=== PATIENT | male | born 1970 | race Caucasian/White ===

== ENCOUNTER 2023-10-18 11:42 | Inpatient (IN) ==
--- NOTE | 2023-10-18 12:32 | Emergency Department Note ---
Impression & Plan Depression, Parkinson's disease ED Provider Note NAME: VICKIE HICKS III AGE: 53 SEX: M : 1970 ARRIVES VIA: Walk-In INFORMANT: Patient, ED PROVIDER(S): Jalil Landa DO CHIEF COMPLAINT: Mental health evaluation HPI: The patient is a 53-year-old male who has a history of early onset Parkinson's who presented to the emergency department for mental health evaluation. The patient presented with his oldest daughter who does give part of the history and also voiced some concerns about the patient's mental health issues. The patient has had some problems with his medications recently. Specifically he had a decrease in his Sinemet dose. He was compliant with that medication change. He was started on 2 new medications this week but has not picked them up. The patient denies having any medical issues at this time. He has had intermittent episodes of headache. He did have a CT when he was here last time. He denies having any suicidal homicidal ideation but does voice some issues with kolby as well as insomnia. ROS: See above HPI for pertinent positives & negatives. A total of 10 systems reviewed and were otherwise negative. PAST MEDICAL HISTORY: See Below PAST SURGICAL HISTORY: See Below FAMILY HISTORY: See Below SOCIAL HISTORY: See Below HOME MEDICATIONS: See Below ALLERGIES: See Below VITALS: See Below PHYSICAL EXAMINATION: GENERAL: Patient is awake alert in no acute distress patient is resting comfortably and showing no signs of anxiety EYES: The conjunctivae are clear. The pupils are round and reactive. EARS, NOSE, MOUTH AND THROAT: The nose is without any evidence of any deformity. NECK: The neck is nontender and supple. RESPIRATORY: Normal respiratory effort is noted there is no evidence of wheezing rhonchi or rales CARDIOVASCULAR: Regular rate and rhythm noted there no murmurs rubs or gallops normal S1 normal S2. GASTROINTESTINAL: The abdomen is soft. Abdomen is nontender. MUSCULOSKELETAL/EXTREMITIES: There is no evidence of gross deformity full range of motion is noted in the hips and shoulders. SKIN: There is no obvious evidence of any rash. There are no petechiae, pallor or cyanosis noted. NEUROLOGIC: Patient is awake alert and oriented x3 strength is symmetric patellar reflexes are 2+ bilaterally PSYCH: The patient makes good eye contact mostly evaluation. Currently the patient is denying any suicidal homicidal ideation. MEDICAL DECISION MAKING: The patient is a 53-year-old male who presented to the emergency department for mental health evaluation. The patient was seen our facility recently for similar complaints. At that time he was medically cleared but he was able to go home. He did have follow-up with his outpatient providers. He did have some medication changes specifically regarding his diagnosis of Parkinson's. He has been compliant with his outpatient medications but he does have 2 medication he was recently started on that he did not have a chance to burr picker yet. He presented back to the emergency department today for mental health evaluation. The patient was medically cleared in the emergency department. The patient was reevaluated multiple times. On subsequent reevaluation he was felt to be a good candidate for possible inpatient management. He was evaluated by the mental health caseworker and referred to 3 [facility]. He was evaluated by [facility]. and was felt to be a good candidate for inpatient management. The 201 was signed by myself. Triage Nursing notes reviewed. Prior medical records reviewed Vital Signs: reviewed and remarkable for no significant abnormalities Differential diagnosis: Mood disorder, infection, hypoglycemia, electrolyte abnormalities, cardiac sources, intracerebral event, toxicologic, trauma, neurologic, as well as other pathologies. ER treatment provided: See below Diagnostics interpreted by me: ECG: none Laboratory studies: As stated above and show below. Imaging studies: See below. Consultation(s): I discussed this case with the emergency department mental health caseworker. Past Med/Surg History Medical History Parkinson disease Hypokalemia Anxiety Chest pain Medication adverse effect Social History Smoking Status: Never smoker Hx Alcohol Use: No Hx Substance Use: No Preferred Language: Paraguayan Feels Safe at Home: Yes Gender Identity: Male Allergies Allergies Allergy/AdvReac Type Severity Reaction Status Date / Time No Known Allergies Allergy Unverified 10/18/23 14:27 Home Meds Home Medications Medication Instructions Recorded Confirmed carbidopa 25 mg-levodopa 100 mg See Rx Instructions .Route .COMPLEX 10/18/23 10/18/23 tablet lisinopril 20 mg tablet 20 mg PO QAM 10/18/23 10/18/23 sildenafil 100 mg tablet 100 mg PO DAILY PRN intercourse 10/18/23 10/18/23 Results & Data (ED) Vital Signs Vital Signs - 24 hr 10/18/23 11:45 10/18/23 12:09 10/18/23 14:00 Temperature 36.5 C Temperature Source Temporal Artery Scan Pulse Rate 106 H Pulse Rate [Right Finger] 96 H Pulse Rhythm [Right Finger] Regular Pulse Strength [Right Finger] Normal Respiratory Rate 20 20 Respiratory Effort / Characteristics Non-Labored Spontaneous Respiratory Depth Normal Respiratory Pattern Regular Blood Pressure 140/94 Blood Pressure [Right Arm] 138/88 Blood Pressure Mean 109 Blood Pressure Mean [Right Arm] 104 Blood Pressure Position [Right Arm] Sitting Pulse Oximetry 97 96 Oxygen Delivery Method Room Air Room Air Sepsis Recent Fever Within 48 Hours No No Sepsis New/Unexplained Change in Mental Status No No Sepsis Action Taken by Nursing No Action Required No Action Required Home Medications Current Medication List: was personally reviewed by me Laboratory Data Attestation: I reviewed the patient's lab results. 10/18/23 12:56 10/18/23 12:56 Lab Results 10/18/23 Range/Units 12:56 WBC 6.34 (4.8-10.8) K/ul RBC 4.91 (4.70-6.10) M/uL Hgb 14.4 (14.0-18.0) g/dl Hct 43.2 (42.0-52.0) % MCV 88.0 (80.0-100.0) fL MCH 29.3 (25.0-34.0) pg MCHC 33.3 (32.0-36.0) g/dL RDW Std Deviation 39.7 (36.4-46.3) fL RDW Coeff of Rickey 12.2 (11.5-14.5) % Plt Count 277 (130-400) K/uL MPV 9.5 (9.4-12.4) fL Immature Gran % (Auto) 0.2 % Neut % (Auto) 68.6 % Lymph % (Auto) 22.2 % [place] % (Auto) 7.9 % Eos % (Auto) 0.8 % Baso % (Auto) 0.3 % Neut # (Auto) 4.35 (1.40-6.50) K/uL Lymph # (Auto) 1.41 (1.20-3.40) K/uL [place] # (Auto) 0.50 (0.11-0.59) K/uL Eos # (Auto) 0.05 (0.00-0.50) K/uL Baso # (Auto) 0.02 (0.00-0.20) K/uL Immature Gran # (Auto) 0.01 (0.01-0.20) K/uL Sodium 139 (136-145) mmol/L Potassium 4.2 D (3.5-5.1) mmol/L Chloride 104 (98-107) mmol/L Carbon Dioxide 29 (21-32) mmol/L Anion Gap 6 (3-11) BUN 11 (6-23) mg/dl Creatinine 0.70 (0.6-1.4) mg/dl Est Cr Clr Drug Dosing 174.4 ml/min Est GFR ( Amer) 126.6 ml/min Est GFR (Non-Af Amer) 109.3 ml/min BUN/Creatinine Ratio 15.7 (10-20) Glucose 103 H (70-99(Fasting)) mg/dl Calcium 9.1 (8.6-10.3) mg/dl Total Bilirubin 0.8 (0.2-1.0) mg/dl AST 15 (13-39) U/L ALT 3 L (7-52) U/L Alkaline Phosphatase 77 (34-104) U/L Total Protein 6.2 (6.0-8.3) gm/dl Albumin 4.0 (3.4-5.0) gm/dl Globulin 2.2 L (2.5-4.0) gm/dl Albumin/Globulin Ratio 1.8 (0.9-2) TSH 0.277 L (0.300-4.500) uIu/ml Free T4 0.99 (0.61-1.60) ng/dl Urine Color Yellow Urine Appearance Clear (Clear) Urine pH 6.5 (4.5-7.5) Ur Specific [place] 1.018 (1.000-1.030) Urine Protein Negative (Negative) Urine Glucose (UA) Negative (Negative) Urine Ketones Trace H (Negative) Urine Blood Negative (Negative) Urine Nitrite Negative (Negative) Urine Bilirubin Negative (Negative) Urine Urobilinogen Negative (Negative) Ur Leukocyte Esterase Negative (Negative) Salicylates < 3.0 L (3.0-30) mg/dl Urine Opiates Screen Neg (Neg) Ur Methadone, Qual Neg (Neg) Acetaminophen < 3 L (10-30) ug/ml Urine Barbiturates Neg (Neg) Ur Phencyclidine (PCP) Neg (Neg) U Amphetamin/Meth Scrn Neg (Neg) MDMA (Ecstasy) Screen Neg (Neg) U Benzodiazepines Scrn Neg (Neg) Ur Cocaine Metabolite Neg (Neg) U Marijuana (THC) Screen Neg (Neg) Ethyl Alcohol mg/dL < 10.0 (<10.0) mg/dl SARS-CoV-2, RNA, NAAT NEGATIVE (NEGATIVE) Discharge Plan Visit Data Chief Complaint: Mental Health Evaluation Stated Complaint: MHE ED Provider: Jalil Landa Discharge Problem: Depression, Parkinson's disease Patient Disposition: Transfer Behavioral Health Fac Forms Stand Alone Forms: [facility], Suicide Prevention Resources Prescriptions Prescriptions: No Action lisinopril 20 mg tablet 20 mg PO QAM sildenafil 100 mg tablet 100 mg PO DAILY PRN (Reason: intercourse) carbidopa-levodopa 25-100 mg tablet See Rx Instructions .ROUTE .COMPLEX Rx Instructions: Take 3 tablets by mouth every 3 hours and at noon time it changes to 2 tablets by mouth every 3 hours. (during waking hours) Referrals Referrals: Ketan Bray MD [Primary Care Provider] - Discharge Problem: Depression Qualifiers: Depression Type: unspecified Qualified Code(s): F32.A - Depression, unspecified Parkinson's disease Qualifiers: Dyskinesia presence: unspecified whether dyskinesia Fluctuating manifestations: unspecified whether manifestations fluctuate Qualified Code(s): G20.A1 - Parkinson's disease without dyskinesia, without mention of fluctuations
[2023-10-18 13:20] LABS: Basophils # (auto) 0.02 K/uL (0.00-0.20); Basophils % (auto) 0.3 %; Eosinophils # (auto) 0.05 K/uL (0.00-0.50); Eosinophils % (auto) 0.8 %; Hematocrit (blood only) 43.2 % (42.0-52.0); Hemoglobin 14.4 g/dl (14.0-18.0); Immature Granulocytes # (auto) 0.01 K/uL (0.01-0.20); Immature Granulocytes % (auto) 0.2 %; Lymphocytes # (auto) 1.41 K/uL (1.20-3.40); Lymphocytes % (auto) 22.2 %; Mean Corpuscular Hemoglobin 29.3 pg (25.0-34.0); Mean Corpuscular Hgb Conc 33.3 g/dL (32.0-36.0); Mean Platelet Volume 9.5 fL (9.4-12.4); Monocytes % (auto) 7.9 %; Neutrophils # (auto) 4.35 K/uL (1.40-6.50); Neutrophils % (auto) 68.6 %; Platelet Count 277 K/uL (130-400); RDW Coefficient of Variation 12.2 % (11.5-14.5); RDW Standard Deviation 39.7 fL (36.4-46.3); Red Blood Count 4.91 M/uL (4.70-6.10); White Blood Count 6.34 K/ul (4.8-10.8)
[2023-10-18 13:42] LABS: Appearance Urine Clear (Clear); Bilirubin Urine Negative (Negative); Blood Urine Negative (Negative); Color Urine Yellow; Glucose Urine UA Negative (Negative); Ketones Urine Trace (Negative); Leukocyte Esterase Urine Negative (Negative); Nitrite Urine Negative (Negative); Protein Urine Negative (Negative); Specific Gravity Urine 1.018 (1.000-1.030); Urobilinogen Urine Negative (Negative); pH Urine 6.5 (4.5-7.5)
[2023-10-18 13:51] LABS: Acetaminophen < 3 ug/ml (10-30); Albumin Globulin Ratio 1.8 (0.9-2); BUN Creatinine Ratio 15.7 (10-20); Bilirubin,Total 0.8 mg/dl (0.2-1.0); Calcium 9.1 mg/dl (8.6-10.3); Creatinine Clr Calc Pharmacy 174.4 ml/min; Est GFR (African American) 126.6 ml/min; Est GFR (Non-African American) 109.3 ml/min; Globulin 2.2 gm/dl (2.5-4.0); Potassium 4.2 mmol/L (3.5-5.1); Salicylate < 3.0 mg/dl (3.0-30); Thyroid Stimulating Hormone 0.277 uIu/ml (0.300-4.500); Total Protein 6.2 gm/dl (6.0-8.3)
[2023-10-18 14:01] LABS: Amphetamines+Metham, Urine Neg (Neg); Barbiturates, Urine Neg (Neg); Benzodiazepine, Urine Neg (Neg); Cocaine, Urine Neg (Neg); MDMA (Ecstacy), Urine Neg (Neg); Marijuana, Urine Neg (Neg); Methadone, Urine Neg (Neg); Opiate, Urine Neg (Neg); Phencyclidine, Urine Neg (Neg)
[2023-10-18 14:28] LABS: T4 Free Thyroxine 0.99 ng/dl (0.61-1.60)
[2023-10-18] MEDS ORDERED: BISMUTH SUBSALICYLATE LIQD 236 ML PO PRN (16:36)
[2023-10-18] MEDS ORDERED: MAGNESIUM HYDROXIDE SUSP 30 ML UDC PO PRN (16:36)
[2023-10-18] MEDS ORDERED: SODIUM CHLORIDE 0.65% NA SOLN 45 ML (OCEAN) PRN (16:36)
[2023-10-18] MEDS ORDERED: ACETAMINOPHEN 325 MG TAB PO PRN (16:36)
[2023-10-18] MEDS ORDERED: ALUMINUM/MAGNESIUM SUSP 30 ML UDC PO PRN (16:36)
[2023-10-18] MEDS ORDERED: hydrOXYzine HCl 25 MG TAB PO PRN ×2 (16:36)
[2023-10-18] MEDS ORDERED: QUEtiapine FUMARATE 25 MG TABLET PO PRN (16:39)
[2023-10-18] MEDS ORDERED: BENZTROPINE MESYLATE 1 MG TAB PO PRN (16:40)
[2023-10-18] MEDS: CARBIDOPA/LEVODOPA 25/100MG TAB PO SCH ×2 (18:03→21:01)
[2023-10-18] MEDS ORDERED: INFLUENZA VIRUS QUADRIVALENT VACCINE (IIV4) 0.5 ML SYR IM ONE (21:00)
[2023-10-19] MEDS: CARBIDOPA/LEVODOPA 25/100MG TAB PO SCH ×6 (06:23→21:02)
[2023-10-19] MEDS: lisinopril 20 MG TAB PO SCH (10:04)
--- NOTE | 2023-10-19 15:23 | Electrocardiogram Report ---
Test Reason : Blood Pressure : / mmHG Vent. Rate : 090 BPM Atrial Rate : 090 BPM P-R Int : 206 ms QRS Dur : 092 ms QT Int : 346 ms P-R-T Axes : 008 -17 014 degrees QTc Int : 423 ms Normal sinus rhythm Normal ECG When compared with ECG of 17-OCT-2023 01:02, No significant change was found Confirmed by Jalil Fabian ([id number]) on 10/19/2023 3:23:05 PM Referred By: REFERRED SELF Confirmed By:Jalil Fabian
--- NOTE | 2023-10-19 16:06 | History & Physical ---
Date of Service October 19, 2023 Impression / Recommendations Impression 53 yo male with a hx of early onset Parkinson's disease who seemingly developed some psychotic symptoms on high dose Sinemet. Dopamine dysregulation syndrome may be driving some of his hyperfocus on meds and overmedication. His concerns about his partner cheating may be a common delusion seen in Parkinson's. (1) Parkinson's disease: Dyskinesia presence: unspecified whether dyskinesia Fluctuating manifestations: unspecified whether manifestations fluctuate Qualified Code(s): G20.A1 - Parkinson's disease without dyskinesia, without mention of fluctuations (2) Unspecified mood [affective] disorder: (3) Medication adverse effect: Encounter type: initial encounter Qualified Code(s): T50.905A - Adverse effect of unspecified drugs, medicaments and biological substances, initial encounter Plan The patient was [facility] to the [facility]) on q15 min checks (behavioral with suicide precautions) for safety. The patient will participate in group, recreational, and milieu therapies and will be offered additional individual and family sessions as clinically appropriate. Continue Sinemet as discussed with neurology with plan to decrease some tabs to 2.5 mg tomorrow. Patient has Seroquel prn and will discuss as standing medication based on emerging symptoms on unit. No evidence of sundowning so far. Suspect patient is minimizing his psychotic symptoms prior to admission but certainly may have resolved quickly with appropriate supervision of Sinemet. Inventory Assets Strengths: voluntary patient, utilziing supports Needs: improve coping skills, secure plan for medications. Suicide Risk Level Suicide Risk Level: Low (q15 min observation checks) Risk Factors Assessment Male: Yes : Yes Do You Have Access To A Gun?: No Health Problems: Yes Mental Health Diagnoses: Yes Substance Use Disorders: No Previous Attempt: No Family History of Suicide: No Previous Psychiatric Hospitalization: No Protective Factors Assessment : No Employed: Yes ([employer]; [employer] Supportive Family: Yes Good Rapport with Provider: Yes (neurology) Psychiatric History Identifying Data VICKIE HICKS is a 53-year-old M who currently lives in [place], has a history of early onset Parkinson's, and was admitted on 10/18/23 16:36 on a 201 voluntary commitment for paranoia and personality changes. Chief Complaint "yeah if I felt tight I would take an extra half or full tab of Sinemet. They told me to cut back but I hadn't started yet." History of Present Illness Patient was seen in ED on 10/09, 10/16, 10/17 and 10/18 for concerns about anxiety and poor sleep. Family expressed concerns that he was also hallucinating (visual if not including auditory erickson) of a man in the yard with a gun or someone shining light or laser pointers into home. He became more confrontational with his detention girlfriend, accusing her of having an affair. The patient tends to minimize these concerns stating, "I covered the window in the door with blanket and they stopped" or referring to issues with girlfriend as "relationship problems" rather than seeing as a possible delusion. He denies manic symptoms or obsessive behaviors such as gambling, overspending. 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 He has been quite focussed on his dosing of Sinemet here, did not decrease pm doses to 2 tabs as directed by psychiatrist. Maintains he cannot function on lower dose as gets "spasms and locked up." His outpatient neurologist Dr. Adriana Guevara from [facility] [phone] was contacted re: his current dosing, concerns about overuse of Sinemet and higher end dosing resulting in dopamine dysregulation syndrome. Patient has not appeared manic or psychotic so far on unit but is taking medications as prescribed. Past Psychiatric History Previous Psych History: therapy with [facility] Current Psychiatric Diagnosis: unspecified psychosis Outpatient Services: none currently Previous Psych Admissions: none Do You Have Access To A Gun?: No History of Previous Suicide Attempt: No Past Medication Trials: is listed to start Seroquel per neurology. Allergies Allergy/AdvReac Type Severity Reaction Status Date / Time No Known Allergies Allergy Unverified 10/18/23 14:27 Home Medications Medication Instructions Recorded Confirmed Type carbidopa 25 mg-levodopa 100 mg See Rx Instructions .Route .COMPLEX 10/18/23 10/18/23 History tablet lisinopril 20 mg tablet 20 mg PO QAM 10/18/23 10/18/23 History sildenafil 100 mg tablet 100 mg PO DAILY PRN intercourse 10/18/23 10/18/23 History Family History Family History of: Depression, Anxiety and Psychosis/ThoughtDisorder Family Mental Health History Comment: anxiety/depression, not sure to extent of anything else Alcohol History Hx of Alcohol Use Over the Past 12 Months: No AUDIT Total Score: 1 Smoking Use Have You Smoked or Used Tobacco Products in the Last 30 Days: No Smoking Status: Never smoker Substance History Hx of Prescription Med Misuse Over the Past 12 Months: No Hx of Over the Counter Med Misuse Over the Past 12 Months: No Hx of Inhalent Misuse Over the Past 12 Months: No Hx of Organic Substance Use Over the Past 12 Months: No Hx of Illegal Substances/Street Drug Use Over Past 12 Months: No Problems as a Result of Past Substance Use: None Identified Personal History Living Arrangements: Apartment Highest Grade Completed: Some College Marital Status: Number Of Children: 3 Beliefs That Will Affect Care: None Hx Legal Problems: No Hx Traumatic Life Events: No Patient History Medical History Parkinson disease Hypokalemia Anxiety Chest pain Medication adverse effect Social History Smoking Status: Never smoker Hx Alcohol Use: No Hx Substance Use: No Preferred Language: Maori Communication Ability: Effective Derrick Worker Required: No Beliefs That Will Affect Care: None Feels Safe at Home: Yes Gender Identity: Male Assistive Devices: None Review of Systems Review of Systems: All systems reviewed & are unremarkable except as noted in HPI & below Physical Exam Psychiatric: Orientation: alert and oriented x 3 Apperance: appropriately dressed and appropriately groomed Eye Contact: good eye contact Motor Behavior: no abnormal motor movements Speech: normal rate/rhythm/volume of speech Affect: + constricted affect Mood: + anxious mood Thought Process: + perseveration Thought Content: reality based without delusions Suicidal Thoughts: denies suicidal thoughts Homicidal Thoughts: denies homicidal thoughts Hallucinations: no auditory hallucinations and no visual hallucinations Cognition: attention grossly intact and language grossly intact Estimated Intelligence: consistent with education level Insight: + limited insight Judgment: + limited judgement Vital Signs (Past 24 Hours): Last Vital Signs Temp 36.6 C 10/19/23 06:54 Pulse 94 H 10/19/23 06:55 Resp 16 10/19/23 06:54 BP 149/97 H 10/19/23 06:55 Pulse Ox 99 10/18/23 18:31 O2 Del Method Room Air 10/18/23 18:31 Exam Statement: A physical exam was performed in the ED by Dr. Landa for the purposes of medical clearance. I accept that physical as correct and adequate for the purposes of the inpatient physical exam. Results & Data ([facility]) Laboratory Results Labs 10/18/23 12:56 WBC 6.34 RBC 4.91 Hgb 14.4 Hct 43.2 MCV 88.0 MCH 29.3 MCHC 33.3 RDW Std Deviation 39.7 RDW Coeff of Rickey 12.2 Plt Count 277 MPV 9.5 Immature Gran % (Auto) 0.2 Neut % (Auto) 68.6 Lymph % (Auto) 22.2 [place] % (Auto) 7.9 Eos % (Auto) 0.8 Baso % (Auto) 0.3 Neut # (Auto) 4.35 Lymph # (Auto) 1.41 [place] # (Auto) 0.50 Eos # (Auto) 0.05 Baso # (Auto) 0.02 Immature Gran # (Auto) 0.01 Sodium 139 Potassium 4.2 D Chloride 104 Carbon Dioxide 29 Anion Gap 6 BUN 11 Creatinine 0.70 Est Cr Clr Drug Dosing 174.4 Est GFR ( Amer) 126.6 Est GFR (Non-Af Amer) 109.3 BUN/Creatinine Ratio 15.7 Glucose 103 H Calcium 9.1 Total Bilirubin 0.8 AST 15 ALT 3 L Alkaline Phosphatase 77 Total Protein 6.2 Albumin 4.0 Globulin 2.2 L Albumin/Globulin Ratio 1.8 TSH 0.277 L Free T4 0.99 Urine Color Yellow Urine Appearance Clear Urine pH 6.5 Ur Specific [place] 1.018 Urine Protein Negative Urine Glucose (UA) Negative Urine Ketones Trace H Urine Blood Negative Urine Nitrite Negative Urine Bilirubin Negative Urine Urobilinogen Negative Ur Leukocyte Esterase Negative Salicylates < 3.0 L Urine Opiates Screen Neg Ur Methadone, Qual Neg Acetaminophen < 3 L Urine Barbiturates Neg Ur Phencyclidine (PCP) Neg U Amphetamin/Meth Scrn Neg MDMA (Ecstasy) Screen Neg U Benzodiazepines Scrn Neg Ur Cocaine Metabolite Neg U Marijuana (THC) Screen Neg Ethyl Alcohol mg/dL < 10.0 SARS-CoV-2, RNA, NAAT NEGATIVE Current Inpatient Medications Current Inpatient Medications: Current Inpatient Medications Acetaminophen (Acetaminophen 325 Mg Tab) 650 mg PO Q4H PRN PRN Reason: Headache or Minor Fever Stop: 11/17/23 16:35 Al Hydrox/Mg Hydrox/Simethicone (Aluminum/Magnesium Susp 30 Ml Udc) 30 ml PO Q4H PRN PRN Reason: GI Upset Stop: 11/17/23 16:35 Benztropine Mesylate (Benztropine Mesylate 1 Mg Tab) 1 mg PO Q6 PRN PRN Reason: Muscle Spasm Stop: 11/17/23 16:39 Bismuth Subsalicylate (Bismuth Subsalicylate Liqd 236 Ml) 15 ml PO PRN PRN PRN Reason: Loose Stool Stop: 11/17/23 16:35 Carbidopa/Levodopa (Carbidopa/Levodopa 25/100mg Tab) 3 tab PO Q3HWA KELLI Stop: 11/18/23 11:59 Last Admin: 10/19/23 15:29 Dose: 3 tab Hydroxyzine HCl (Hydroxyzine Hcl 25 Mg Tab) 50 mg PO HSZ PRN PRN Reason: Insomnia Stop: 11/17/23 16:35 Hydroxyzine HCl (Hydroxyzine Hcl 25 Mg Tab) 25 mg PO Q4H PRN PRN Reason: Anxiety Stop: 11/17/23 16:35 Lisinopril (Lisinopril 20 Mg Tab) 20 mg PO QAM [facility] Stop: 11/18/23 08:59 Last Admin: 10/19/23 10:04 Dose: 20 mg Magnesium Hydroxide (Magnesium Hydroxide Susp 30 Ml Udc) 30 ml PO DAILY PRN PRN Reason: Constipation Stop: 11/17/23 16:35 Quetiapine Fumarate (Quetiapine Fumarate 25 Mg Tablet) 25 mg PO Q6 PRN PRN Reason: hallucinations/agitation Stop: 11/17/23 16:38 Last Admin: 10/18/23 21:01 Dose: 25 mg Sodium Chloride (Sodium Chloride 0.65% Na Soln 45 Ml ([place])) 1 - 2 sprays NA PRN PRN PRN Reason: Nasal Dryness/Congestion Stop: 11/17/23 16:35
[2023-10-20] MEDS: CARBIDOPA/LEVODOPA 25/100MG TAB PO SCH ×6 (07:11→19:01)
[2023-10-20] MEDS: lisinopril 20 MG TAB PO SCH (09:11)
--- NOTE | 2023-10-20 12:01 | Psychiatric Progress Note ---
Date of Service October 20, 2023 Impression / Recommendations Impression 53 yo male with a hx of early onset Parkinson's disease who seemingly developed some psychotic symptoms on high dose Sinemet. Dopamine dysregulation syndrome may be driving some of his hyperfocus on meds and overmedication. His concerns about his partner cheating may be a common delusion seen in Parkinson's. 10/20/2023: patient's insight into the cause of his symptoms prior to admission is improving but continues to minimize Overall, I spent a total of 40 minutes with this case, including review of chart, direct evaluation of the patient, counseling the patient, coordination with nursing, coordination of care with outpatient provider, and documentation. (1) Parkinson's disease: (2) Unspecified mood [affective] disorder: (3) Medication adverse effect: Plan 10/20/23: space Sinemet to q 3.5 hrs. Seroquel prn only as no ongoing psychosis or manic symptoms. Needs family meeting around medication safety. 10/19/23: The patient was admitted to the [facility] ([facility] mental health unit) on q15 min checks (behavioral with suicide precautions) for safety. The patient will participate in group, recreational, and milieu therapies and will be offered additional individual and family sessions as clinically appropriate. Continue Sinemet as discussed with neurology with plan to decrease some tabs to 2.5 mg tomorrow. Patient has Seroquel prn and will discuss as standing medication based on emerging symptoms on unit. No evidence of sundowning so far. Suspect patient is minimizing his psychotic symptoms prior to admission but certainly may have resolved quickly with appropriate supervision of Sinemet. Inventory Assets Strengths: voluntary patient, utilziing supports Needs: improve coping skills, secure plan for medications. Suicide Risk Level Suicide Risk Level: Low (q15 min observation checks) Risk Factors Assessment Male: Yes : Yes Do You Have Access To A Gun?: No Health Problems: Yes Mental Health Diagnoses: Yes Substance Use Disorders: No Previous Attempt: No Family History of Suicide: No Previous Psychiatric Hospitalization: No Protective Factors Assessment : No Employed: Yes ([employer]; [employer] Supportive Family: Yes Good Rapport with Provider: Yes (neurology) Interval History Identifying Information VICKIE HICKS is a 53-year-old M who currently lives in [place], has a history of early onset Parkinson's, and was admitted on 10/18/23 16:36 on a 201 voluntary commitment for paranoia and personality changes. 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 Less restless today. Wanted to sit with door open in doctor's office as "claustrophobic" He appears more comfortable today/less restless but prefers 1 on1 vs. group, largely as he doesn't feel need to be hospitalized. He states his phone conversations with his girlfriend and daugher have been good and recognizes that "can only take Sinemet as prescribed". He would be more comfortable spreading out dose times on Sinemet rather than decreasing number of tabs which is supported by outpatient neurologist. Physical Exam Psychiatric Orientation: alert and oriented x 3 Apperance: appropriately dressed and appropriately groomed Eye Contact: good eye contact Motor Behavior: no abnormal motor movements Speech: normal rate/rhythm/volume of speech Affect: euthymic affect Mood: + anxious mood Thought Process: no perseveration Thought Content: reality based without delusions Suicidal Thoughts: denies suicidal thoughts Homicidal Thoughts: denies homicidal thoughts Hallucinations: no auditory hallucinations and no visual hallucinations Cognition: attention grossly intact and language grossly intact Estimated Intelligence: consistent with education level Insight: + limited insight Judgment: + limited judgement Vital Signs (Past 24 Hours) Last Vital Signs Temp 36.2 C L 10/20/23 06:37 Pulse 95 H 10/20/23 06:37 Resp 20 10/20/23 06:37 BP 162/105 H 10/20/23 06:37 Pulse Ox 96 10/20/23 06:37 O2 Del Method Room Air 10/20/23 06:37 Results & Data (U) Current Inpatient Medications Current Inpatient Medications: Current Inpatient Medications Acetaminophen (Acetaminophen 325 Mg Tab) 650 mg PO Q4H PRN PRN Reason: Headache or Minor Fever Stop: 11/17/23 16:35 Al Hydrox/Mg Hydrox/Simethicone (Aluminum/Magnesium Susp 30 Ml Udc) 30 ml PO Q4H PRN PRN Reason: GI Upset Stop: 11/17/23 16:35 Benztropine Mesylate (Benztropine Mesylate 1 Mg Tab) 1 mg PO Q6 PRN PRN Reason: Muscle Spasm Stop: 11/17/23 16:39 Bismuth Subsalicylate (Bismuth Subsalicylate Liqd 236 Ml) 15 ml PO PRN PRN PRN Reason: Loose Stool Stop: 11/17/23 16:35 Carbidopa/Levodopa (Carbidopa/Levodopa 25/100mg Tab) 3 tab PO Q3HWA KELLI Stop: 11/18/23 11:59 Last Admin: 10/20/23 09:12 Dose: 3 tab Hydroxyzine HCl (Hydroxyzine Hcl 25 Mg Tab) 50 mg PO HSZ PRN PRN Reason: Insomnia Stop: 11/17/23 16:35 Hydroxyzine HCl (Hydroxyzine Hcl 25 Mg Tab) 25 mg PO Q4H PRN PRN Reason: Anxiety Stop: 11/17/23 16:35 Lisinopril (Lisinopril 20 Mg Tab) 20 mg PO QAM KELLI Stop: 11/18/23 08:59 Last Admin: 10/20/23 09:11 Dose: 20 mg Magnesium Hydroxide (Magnesium Hydroxide Susp 30 Ml Udc) 30 ml PO DAILY PRN PRN Reason: Constipation Stop: 11/17/23 16:35 Quetiapine Fumarate (Quetiapine Fumarate 25 Mg Tablet) 25 mg PO Q6 PRN PRN Reason: hallucinations/agitation Stop: 11/17/23 16:38 Last Admin: 10/18/23 21:01 Dose: 25 mg Sodium Chloride (Sodium Chloride 0.65% Na Soln 45 Ml ([place])) 1 - 2 sprays NA PRN PRN PRN Reason: Nasal Dryness/Congestion Stop: 11/17/23 16:35 Mental Health & Subst Abuse Tx Therapist Name of Therapist: Angelica Booth (VIDEO CONSULTATION) Therapist's Date of Therapist Appointment: 10/21/2023 Time of Therapist Appointment: 11am-11:15am Therapy Appointment Comment: VIDEO LINK WILL BE EMAILED TO YOU 10 MINUTES PRIOR TO APPOINTMENT STARTING Post Discharge Appointments Primary Care Physician Name Of Family Doctor/PCP: [facility] Time of Appointment with PCP: please follow up with PCP as needed Provider Appointment Comment: [phone], [place] [phone] Neurologist Name of Neurologist: Job Cartagena- Dr. Adriana Guevara Date of Appointment with Neurologist: 10/25/23 (1) Parkinson's disease Dyskinesia presence: unspecified whether dyskinesia Fluctuating manifestations: unspecified whether manifestations fluctuate Qualified Code(s): G20.A1 - Parkinson's disease without dyskinesia, without mention of fluctuations (3) Medication adverse effect Encounter type: initial encounter Qualified Code(s): T50.905A - Adverse effect of unspecified drugs, medicaments and biological substances, initial encounter
[2023-10-20] MEDS ORDERED: LORazepam 0.5 MG TAB PO ONE (12:18)
[2023-10-20] MEDS ORDERED: LORazepam 0.5 MG TAB PO STA (12:18)
[2023-10-20] MEDS ORDERED: cloNIDine HCL 0.1 MG TAB PO ONE (12:40)
--- NOTE | 2023-10-20 14:33 | Electrocardiogram Report ---
Test Reason : Blood Pressure : / mmHG Vent. Rate : 105 BPM Atrial Rate : 105 BPM P-R Int : 186 ms QRS Dur : 100 ms QT Int : 336 ms P-R-T Axes : 053 -20 053 degrees QTc Int : 444 ms Sinus tachycardia Otherwise normal ECG When compared with ECG of 18-OCT-2023 12:55, T wave amplitude has increased in Anterior leads Confirmed by Jalil Fabian ([id number]) on 10/20/2023 2:33:30 PM Referred By: REFERRED SELF Confirmed By:Jalil Fabian
[2023-10-21] MEDS: CARBIDOPA/LEVODOPA 25/100MG TAB PO SCH ×6 (00:13→19:57)
[2023-10-21] MEDS: lisinopril 20 MG TAB PO SCH (09:19)
[2023-10-21] MEDS ORDERED: cloNIDine HCL 0.1 MG TAB PO ONE (09:32)
--- NOTE | 2023-10-21 15:22 | Psychiatric Progress Note ---
Date of Service October 21, 2023 Impression / Recommendations Impression 53 yo male with a hx of early onset Parkinson's disease who seemingly developed some psychotic symptoms on high dose Sinemet. Dopamine dysregulation syndrome may be driving some of his hyperfocus on meds and overmedication. His concerns about his partner cheating may be a common delusion seen in Parkinson's. Note: patient has been on MNPR during stay due to his reported hx of paranoia, sensitivity to smells, hasn't interacted much in groups, disrupted sleep, and fall risk/movements due to Parkinson's 10/21/2023: some breakthrough paranoia last night but smells are reality based and is referring to a true unit diagram for fire safety, etc. Overall, I spent a total of 80 minutes with this case, including review of chart, direct evaluation of the patient, counseling the patient, coordination with nursing, coordination of care with outpatient provider, phone meeting with daughter, and documentation. (1) Parkinson's disease: (2) Unspecified mood [affective] disorder: (3) Medication adverse effect: Plan 10/21/23: schedule Seroquel, BP not consistently down with clonidine, consult [facility] [place] recs. atypical for Sinemet withdrawal. Daughter states has a hx of anxiety based BP elevations but this is rather persistent and even when outwardly calm. 10/20/23: space Sinemet to q 3.5 hrs. Seroquel prn only as no ongoing psychosis or manic symptoms. Needs family meeting around medication safety. 10/19/23: The patient was admitted to the [facility] ([facility]) on q15 min checks (behavioral with suicide precautions) for safety. The patient will participate in group, recreational, and milieu therapies and will be offered additional individual and family sessions as clinically appropriate. Continue Sinemet as discussed with neurology with plan to decrease some tabs to 2.5 mg tomorrow. Patient has Seroquel prn and will discuss as standing medication based on emerging symptoms on unit. No evidence of sundowning so far. Suspect patient is minimizing his psychotic symptoms prior to admission but certainly may have resolved quickly with appropriate supervision of Sinemet. Inventory Assets Strengths: voluntary patient, utilziing supports Needs: improve coping skills, secure plan for medications. Suicide Risk Level Suicide Risk Level: Low (q15 min observation checks) Risk Factors Assessment Male: Yes : Yes Do You Have Access To A Gun?: No Health Problems: Yes Mental Health Diagnoses: Yes Substance Use Disorders: No Previous Attempt: No Family History of Suicide: No Previous Psychiatric Hospitalization: No Protective Factors Assessment : No Employed: Yes ([employer]; [employer] Supportive Family: Yes Good Rapport with Provider: Yes (neurology) Interval History Identifying Information VICKIE HICKS is a 53-year-old M who currently lives in [place], has a history of early onset Parkinson's, and was admitted on 10/18/23 16:36 on a 201 voluntary commitment for paranoia and personality changes. Chief Complaint requesting discharge Review of Systems Sleep Information Total Hours of Sleep: 1.5 Sleep Comments: believed staff were "altering the atmosphere of the room" Meal Information Percent Meal Consumed - Breakfast: 10 Percent Meal Consumed - Lunch: 100 Percent Meal Consumed - Dinner: 100 Subjective Subjective Patient was seen & assessed and interval progress reviewed with treatment team. Was scheduled for family session with daughter this am. Patient seemingly has no memory of statements from last night re: his room. The smell in his room is reality based given construction and daughter agreed but his rationalization of it remains concerning. He did not sleep well and reviewing scheduling his Seroquel from here on out. No other evidence of sundowning and today's discussion is reality based. He does seem to have significant stiffness/change in gait 3 hrs 15 min into dosing of Sinemet but has been cooperative with trial on spacing. Spoke with daughter with SW present to answer questions re: med safety, she was educated re: dopamine dysregulation syndrome and sinemet psychosis. Nursing confirmed that sister in law who lives nearby has secured meds and can manage until the lock box with timed dispense arrives next week. Patient was agreeable to remain hospitalized for additional monitoring of his sleep, BP, pending safety plan. He is aware recommendation is to not drive or return to work until cleared by neurology and that daughter plans to take to appointment. Family to take car keys. Patient was appropriately sad of his perceived lack of independence but agrees was necessary for now. neurologist updated in preparation of change in service/pending discharge. Dr. Guevara confirmed will continue to manage psych meds until his psychiatric colleague can consult with patient in November. Reviewed that has difficulty making it the full 3.5 hrs between doses before becoming symptomatic. Physical Exam Psychiatric Orientation: alert and oriented x 3 Apperance: appropriately dressed and appropriately groomed Eye Contact: good eye contact Motor Behavior: no abnormal motor movements Speech: normal rate/rhythm/volume of speech Affect: euthymic affect and + constricted affect Mood: + anxious mood Thought Process: no perseveration Thought Content: reality based without delusions Suicidal Thoughts: denies suicidal thoughts Homicidal Thoughts: denies homicidal thoughts Hallucinations: no auditory hallucinations and no visual hallucinations Cognition: attention grossly intact and language grossly intact Estimated Intelligence: consistent with education level Insight: + limited insight Judgment: + limited judgement Vital Signs (Past 24 Hours) Last Vital Signs Temp 36.2 C L 10/20/23 06:37 Pulse 103 H 10/21/23 12:19 Resp 18 10/21/23 06:40 BP 158/100 H 10/21/23 12:19 Pulse Ox 97 10/20/23 16:12 O2 Del Method Room Air 10/20/23 16:12 Results & Data ([facility]) Current Inpatient Medications Current Inpatient Medications: Current Inpatient Medications Acetaminophen (Acetaminophen 325 Mg Tab) 650 mg PO Q4H PRN PRN Reason: Headache or Minor Fever Stop: 11/17/23 16:35 Al Hydrox/Mg Hydrox/Simethicone (Aluminum/Magnesium Susp 30 Ml Udc) 30 ml PO Q4H PRN PRN Reason: GI Upset Stop: 11/17/23 16:35 Benztropine Mesylate (Benztropine Mesylate 1 Mg Tab) 1 mg PO Q6 PRN PRN Reason: Muscle Spasm Stop: 11/17/23 16:39 Bismuth Subsalicylate (Bismuth Subsalicylate Liqd 236 Ml) 15 ml PO PRN PRN PRN Reason: Loose Stool Stop: 11/17/23 16:35 Carbidopa/Levodopa (Carbidopa/Levodopa 25/100mg Tab) 3 tab PO 0600,0930,1300,1630,2000,2330 KELLI Stop: 11/18/23 11:59 Last Admin: 10/21/23 12:55 Dose: 3 tab Hydroxyzine HCl (Hydroxyzine Hcl 25 Mg Tab) 50 mg PO HSZ PRN PRN Reason: Insomnia Stop: 11/17/23 16:35 Hydroxyzine HCl (Hydroxyzine Hcl 25 Mg Tab) 25 mg PO Q4H PRN PRN Reason: Anxiety Stop: 11/17/23 16:35 Lisinopril (Lisinopril 20 Mg Tab) 20 mg PO QAM KELLI Stop: 11/18/23 08:59 Last Admin: 10/21/23 09:19 Dose: 20 mg Magnesium Hydroxide (Magnesium Hydroxide Susp 30 Ml Udc) 30 ml PO DAILY PRN PRN Reason: Constipation Stop: 11/17/23 16:35 Quetiapine Fumarate (Quetiapine Fumarate 25 Mg Tablet) 25 mg PO Q6 PRN PRN Reason: hallucinations/agitation Stop: 11/17/23 16:38 Last Admin: 10/18/23 21:01 Dose: 25 mg Quetiapine Fumarate (Quetiapine Fumarate 25 Mg Tablet) 25 mg PO HS KELLI Stop: 11/20/23 21:59 Sodium Chloride (Sodium Chloride 0.65% Na Soln 45 Ml ([facility])) 1 - 2 sprays NA PRN PRN PRN Reason: Nasal Dryness/Congestion Stop: 11/17/23 16:35 Mental Health & Subst Abuse Tx Therapist Name of Therapist: Angelica Booth Therapist's Date of Therapist Appointment: 10/21/2023 Time of Therapist Appointment: 11am-11:15am Therapy Appointment Comment: please follow up to sc heduled Post Discharge Appointments Primary Care Physician Name Of Family Doctor/PCP: [facility] Time of Appointment with PCP: please follow up with PCP as needed Provider Appointment Comment: [phone], [place] [id number] Neurologist Name of Neurologist: Job Cartagena- Dr. Adriana Guevara Date of Appointment with Neurologist: 10/25/23 (1) Parkinson's disease Dyskinesia presence: unspecified whether dyskinesia Fluctuating manifestations: unspecified whether manifestations fluctuate Qualified Code(s): G20.A1 - Parkinson's disease without dyskinesia, without mention of fluctuations (3) Medication adverse effect Encounter type: initial encounter Qualified Code(s): T50.905A - Adverse effect of unspecified drugs, medicaments and biological substances, initial encounter
[2023-10-21] MEDS ORDERED: QUEtiapine FUMARATE 25 MG TABLET PO SCH (22:00)
[2023-10-22] MEDS: CARBIDOPA/LEVODOPA 25/100MG TAB PO SCH ×3 (00:24→08:57)
[2023-10-22] MEDS: lisinopril 20 MG TAB PO SCH (08:56)
--- NOTE | 2023-10-22 09:29 | Discharge Summary ---
Date of Service October 22, 2023 History of Present Illness Patient was seen in ED on 10/09, 10/16, 10/17 and 10/18 for concerns about anxiety and poor sleep. Family expressed concerns that he was also hallucinating (visual if not including auditory erickson) of a man in the yard with a gun or someone shining light or laser pointers into home. He became more confrontational with his jail girlfriend, accusing her of having an affair. The patient tends to minimize these concerns stating, "I covered the window in the door with blanket and they stopped" or referring to issues with girlfriend as "relationship problems" rather than seeing as a possible delusion. He denies manic symptoms or obsessive behaviors such as gambling, overspending. 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 He has been quite focussed on his dosing of Sinemet here, did not decrease pm doses to 2 tabs as directed by psychiatrist. Maintains he cannot function on lower dose as gets "spasms and locked up." His outpatient neurologist Dr. Adriana Guevara from [facility] [phone] was contacted re: his current dosing, concerns about overuse of Sinemet and higher end dosing resulting in dopamine dysregulation syndrome. Patient has not appeared manic or psychotic so far on unit but is taking medications as prescribed. Physical Exam Mental Examination Appearance: Well Groomed Eye Contact: Maintains Eye Contact Motor Behavior: Restless Speech: Normal Mood: Depressed and Anxious Affect: Anxious, Calm, Congruent and Flat Thought Process: Intact and Goal Oriented Insight: Fair Judgement: Fair Psychiatric Orientation: alert, oriented to person, oriented to place and oriented to time Apperance: appropriately dressed and appropriately groomed Eye Contact: good eye contact Motor Behavior: no abnormal motor movements Speech: normal rate/rhythm/volume of speech Affect: + constricted affect Mood: + anxious mood Thought Process: no perseveration Thought Content: reality based without delusions Suicidal Thoughts: denies suicidal thoughts Homicidal Thoughts: denies homicidal thoughts Hallucinations: no auditory hallucinations and no visual hallucinations Cognition: attention grossly intact and language grossly intact Estimated Intelligence: consistent with education level Insight: + fair insight Judgment: + fair judgement Vital Signs (Past 24 Hours) Last Vital Signs Temp 36.2 C L 10/20/23 06:37 Pulse 103 H 10/21/23 20:04 Resp 18 10/21/23 06:40 BP 137/92 10/21/23 20:04 Pulse Ox 97 10/21/23 20:04 O2 Del Method Room Air 10/21/23 20:04 See admission H&P and DOD assessment. 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 In short, safety was maintained and the patient was cooperative with care. Medication changes included addition of low-dose quetiapine and they tolerated this well. A family session was held and safety plan was completed prior to discharge. Pt is very anxious about "getting locked up", which seems to be the reason he'd been using carbidopa-levodopa in excess of the prescribed dose. Family will administer that medication somewhat more frequently than prescribed (e.g., not being rigid about taking it a short time before it would be due) until his upcoming neurology appointment. Day of Discharge Assessment Today the patient voices readiness for discharge. They note improvement in mood and deny thoughts to harm self or others. Thoughts remain organized and they are improved from admission. There is no evidence of psychosis. They agree to take mediations as prescribed and keep follow-up appointments. They are stable for discharge to outpatient level of care. Overall I spent a total of 32 minutes on the floor for this discharge including review of chart records, review of test results, direct evaluation of the patient [id number], reconciling and ordering medication, risk assessment, discussion during interdisciplinary treatment rounds, and documentation in the electronic health record. Transition of Care Transition Of Care Record: was reviewed with the patient Advance Directives Advance Directives Information Provided: Yes Advance Directives: No Mental Health Advance Directive: No Advance Directives on File: No Living Will: No Power of Inspector Scales: No Advance Directives Reason:: Declines as Mental Health Visit. Suicide Risk Level Suicide Risk Level Comments: Suicide risk at discharge is deemed low as the patient is no longer requiring 24-hr monitoring, has a safety plan, and is free of suicidal ideation at discharge. Risk Factors Assessment Male: Yes : Yes Do You Have Access To A Gun?: No Health Problems: Yes Mental Health Diagnoses: Yes Substance Use Disorders: No Previous Attempt: No Family History of Suicide: No Previous Psychiatric Hospitalization: No Protective Factors Assessment : No Employed: Yes ([employer]; [employer] Supportive Family: Yes Good Rapport with Provider: Yes (neurology) Total Time Total Time Spent: Greater Than 30 Minutes (32) Total Time Includes: Examination of the patient, Discharge Planning, Medication Reconciliation and As well as (documentation) Discharge Data Consultations 10/21/23 09:37 Consult Hospitalist Routine Lab Results 10/18/23 12:56 WBC 6.34 RBC 4.91 Hgb 14.4 Hct 43.2 MCV 88.0 MCH 29.3 MCHC 33.3 RDW Std Deviation 39.7 RDW Coeff of Rickey 12.2 Plt Count 277 MPV 9.5 Immature Gran % (Auto) 0.2 Neut % (Auto) 68.6 Lymph % (Auto) 22.2 Thurston % (Auto) 7.9 Eos % (Auto) 0.8 Baso % (Auto) 0.3 Neut # (Auto) 4.35 Lymph # (Auto) 1.41 Thurston # (Auto) 0.50 Eos # (Auto) 0.05 Baso # (Auto) 0.02 Immature Gran # (Auto) 0.01 Sodium 139 Potassium 4.2 D Chloride 104 Carbon Dioxide 29 Anion Gap 6 BUN 11 Creatinine 0.70 Est Cr Clr Drug Dosing 174.4 Est GFR ( Amer) 126.6 Est GFR (Non-Af Amer) 109.3 BUN/Creatinine Ratio 15.7 Glucose 103 H Calcium 9.1 Total Bilirubin 0.8 AST 15 ALT 3 L Alkaline Phosphatase 77 Total Protein 6.2 Albumin 4.0 Globulin 2.2 L Albumin/Globulin Ratio 1.8 TSH 0.277 L Free T4 0.99 Urine Color Yellow Urine Appearance Clear Urine pH 6.5 Ur Specific [place] 1.018 Urine Protein Negative Urine Glucose (UA) Negative Urine Ketones Trace H Urine Blood Negative Urine Nitrite Negative Urine Bilirubin Negative Urine Urobilinogen Negative Ur Leukocyte Esterase Negative Salicylates < 3.0 L Urine Opiates Screen Neg Ur Methadone, Qual Neg Acetaminophen < 3 L Urine Barbiturates Neg Ur Phencyclidine (PCP) Neg U Amphetamin/Meth Scrn Neg MDMA (Ecstasy) Screen Neg U Benzodiazepines Scrn Neg Ur Cocaine Metabolite Neg U Marijuana (THC) Screen Neg Ethyl Alcohol mg/dL < 10.0 SARS-CoV-2, RNA, NAAT NEGATIVE Hospital Course (1) Parkinson's disease: (2) Unspecified mood [affective] disorder: (3) Medication adverse effect: Plan 10/21/23: schedule Seroquel, BP not consistently down with clonidine, consult ID [facility] hospitalist for recs. atypical for Sinemet withdrawal. Daughter states has a hx of anxiety based BP elevations but this is rather persistent and even when outwardly calm. 10/20/23: space Sinemet to q 3.5 hrs. Seroquel prn only as no ongoing psychosis or manic symptoms. Needs family meeting around medication safety. 10/19/23: The patient was admitted to the [facility] ([facility] inpatient mental health unit) on q15 min checks (behavioral with suicide precautions) for safety. The patient will participate in group, recreational, and milieu therapies and will be offered additional individual and family sessions as clinically appropriate. Continue Sinemet as discussed with neurology with plan to decrease some tabs to 2.5 mg tomorrow. Patient has Seroquel prn and will discuss as standing medicati on based on emerging symptoms on unit. No evidence of sundowning so far. Suspect patient is minimizing his psychotic symptoms prior to admission but certainly may have resolved quickly with appropriate supervision of Sinemet. Mental Health & Subst Abuse Tx Therapist Name of Therapist: Angelica Booth Therapist's Date of Therapist Appointment: 10/21/2023 Time of Therapist Appointment: 11am-11:15am Therapy Appointment Comment: please follow up to ar heduled Post Discharge Appointments Primary Care Physician Name Of Family Doctor/PCP: [facility] Time of Appointment with PCP: please follow up with PCP as needed Provider Appointment Comment: [address] [place] [address] Neurologist Name of Neurologist: Job Cartagena- Dr. 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 Activity: As commented below Activity Comment: no driving until cleared by neurology Driving/Machine Use: above Non-emergency contact: Primary Care Provider, Neurologist and Therapist Call non-emergency contact if: you have any medication questions and your symptoms worsen Follow-up/Referrals: Ketan Bray MD [Primary Care Provider] - Diet: Regular Addtl Attending Provider Instructions: SPECIAL CARE INSTRUCTIONS: 1. Follow through with your scheduled aftercare appointments. If unable to keep an appointment, please call to reschedule. 2. Take your medication only as prescribed. Medication should not be changed or stopped without the approval of your doctor. In the event of worsening symptoms or concerns about side effects, contact your doctor immediately. 3. Utilize new healthy coping skills, anger management skills, and stress management skills learned during your hospitalization. Journal feelings and process them with a support person. Identify stressors or situations that may result in relapse, deterioration or inappropriate behaviors and develop a plan to deal with those issues. 4. If your coping skills are ineffective and you are in crisis, contact your outpatient providers for direction. If unable to reach your providers, please call the [facility] CRISIS LINE AT , go to the [facility] walk-in center at [address] [place] [address] A, [place], or go to the closest Emergency Room. 5. Avoid alcohol and un-prescribed drugs. 6. You have been provided with the Mental Health Advance Directives Pamphlet for your review. 7. Your condition is stable for discharge to outpatient level of care, but recovery is an ongoing process. Ifthoughts to harm yourself or others return, follow the safety plan developed during your stay. Planning for a safe return home includes securing weapons. Our treatment team recommends weaponsbe removed from the home until your outpatient provider reassesses your progress. In rare cases where the items themselvescannot be removed, guns and ammunitionshould be secured separatelyand keys stored by a reliable personoutside of the home. If you were admitted on an involuntary commitment, the police or other legal authorities may be involved in this process. AFTERCARE APPOINTMENTS: * Please call your insurance company prior to your scheduled appointment to confirm your aftercare providers are covered. Take your insurance information to your appointments. WHO TO CALL AND WHEN: Medical Emergencies: For questions or emergencies related to your hospital stay, please contact the Inpatient Behavioral Health Unit at [phone]. A review assistant is on-call 24/7 for the Behavioral Health Unit for emergencies At any time you feel your situation is an emergency, you may also call 911 immediately. Addtl Plate Keeper Provider Instructions: neurologist wants to attempt to space dosing of Sinemet to every 3.5 hrs. May be given 15 min early if physical symptoms, please record and share record with neurology at follow up appointment Pending Studies at Discharge: No Stand-Alone Forms: My [facility], Smoking Cessation Medications and DC Order Prescriptions: New quetiapine 25 mg Tablet 25 mg PO HS Qty: 1 0RF Rx Instructions: own supply per Dr. Guevara on file carbidopa-levodopa [Sinemet] 25-100 mg Tablet 3 tab PO 0600,0930,1300,1630,2000,2330 Qty: 1 0RF Continued lisinopril 20 mg tablet 20 mg PO QAM sildenafil 100 mg tablet 100 mg PO DAILY PRN (Reason: intercourse) Discontinued carbidopa-levodopa 25-100 mg tablet See Rx Instructions .ROUTE .COMPLEX Rx Instructions: Take 3 tablets by mouth every 3 hours and at noon time it changes to 2 tablets by mouth every 3 hours. (during waking hours) Discharge Orders: Discharge Order (Routine); Ordered 10/22/23 Ordered By: Jayesh Ardon Admission Data Admit Date/Time: 10/18/23 16:36 Attending Provider: Yuliana Chris Admit Provider: Yuliana Chris Primary Care Provider: Ketan Bray Other Providers: Phil Vines Other Interventions: Discharge Summary Assessment (RN) Last Done: 10/22/23 09:37 PSY Interdisciplinary Discharge Planning Last Done: 10/22/23 09:41 Coding Level of Care Code 34620 D/C day mgmt > 30 min Diagnoses Parkinson's disease G20.A1 Dyskinesia presence: unspecified whether dyskinesia Fluctuating manifestations: unspecified whether manifestations fluctuate Unspecified mood [affective] disorder F39 Medication adverse effect T50.905D Encounter type: initial encounter Time Spent (min) 32
--- NOTE | 2023-10-22 10:14 | Hospitalist Consultation ---
Date of Consultation October 22, 2023 Assessment & Plan (1) Elevated blood pressure reading: Pt is a 53 yo male with PMH of parkinson's disease and anxiety who was admitted due to increased stress, anxiety, and paranoia. The medical team was consulted for symptomatic hypertension. Elevated BP reading - per pt, BP well controlled at home - suspect elevated BP in hospital d/t acute situation and increased anxiety; no need for urgent lowering of his BP as there are no signs of end-organ damage - with his reported hx of normal BP at home there is risk of hypotension if further medication added so would advise against this - recommend continuation of home lisinopril 20 mg - encouraged pt to f/u with PCP for further medical management of his HTN As pt is stable and no intervention required and pt slated for discharge this morning, medicine will sign off. Please reach out if there are any further questions. History of Present Illness Reason for Consultation: symptomatic HTN Attending Physician: Yuliana Chris MD History of Present Illness Pt is a 53 yo male with PMH of parkinson's disease and anxiety who was admitted due to increased stress, anxiety, and paranoia. The medical team was consulted for symptomatic hypertension. In talking with the pt, he states he has no history of HTN. He takes his BP on a regular basis as an outpatient and typically gets 120s/80s. Highest blood pressure noted in chart 170s/110s- this is not consistent. Pt did receive a dose of clonidine 0.05mg for his BP. Per home med review, it appears pt is on lisinopril 20 mg at home. Per chart review, no notable kidney or liver dysfunction. Vitals overall stable. TSH notable low at 0.27 with normal T4. Allergies Allergy/AdvReac Type Severity Reaction Status Date / Time No Known Allergies Allergy Unverified 10/18/23 14:27 Home Medications Medication Instructions Recorded Confirmed Type lisinopril 20 mg tablet 20 mg PO QAM 10/18/23 10/18/23 History sildenafil 100 mg tablet 100 mg PO DAILY PRN intercourse 10/18/23 10/18/23 History carbidopa 25 mg-levodopa 100 mg 3 tab PO 10/21/23 Rx tablet (Sinemet) 0600,0930,1300,1630,2000,2330 #1 tab quetiapine 25 mg tablet 25 mg PO HS #1 tab 10/21/23 Rx Patient History Medical History Parkinson disease Hypokalemia Anxiety Chest pain Medication adverse effect Social History Smoking Status: Never smoker Hx Alcohol Use: No Hx Substance Use: No Preferred Language: Kinyarwanda Communication Ability: Effective [employer]osives Truck [employer] Required: No Beliefs That Will Affect Care: None Feels Safe at Home: Yes Gender Identity: Male Assistive Devices: None Review of Systems Review of Systems: As per HPI Physical Exam Physical Exam: Constitutional: well appearing, no acute distress HEENT: normocephalic, no conjunctival injection CV: regular rhythm, regular rate, no murmur Respiratory: Clear to auscultation bilaterally. No rhonchi, wheezes, or crackles. No increased work of breathing MSK: no gross deformities noted Skin: warm, dry, no rashes Neuro: alert, oriented, no FND noted Results & Data Results & Data Vital Signs (Past 12 Hours) Vital Signs Temp Pulse Pulse Pulse Pulse Resp BP 10/22/23 09:37 36.2 C L 103 H 103 H 88 93 H 18 137/92 BP Pulse Ox 10/22/23 09:37 153/98 H 97 Resident Activity Tracking Resident Involvement: Resident Care Provided Care Provided: Adult Hospital Medicine
== END 2023-10-22 11:00 | disposition home or self-care (01) | DRG 885 ==
LOC: ED 11:42 → 3S 16:36